=== PATIENT | female | born 1945 | race Caucasian/White ===

== ENCOUNTER → 2018-03-07 | Outpatient (CLI) | payer OTHER ==
[~2018-03-07] MED LIST: ANAS1TAB7 PO; HYDR25TA PO; IBUP-2077 PO; LISI40TA4 PO; MONT10TA24 PO
== END | disposition home or self-care (01) ==
LOC: RAH 11:03
PROVIDERS: ATTEND Family Medicine
DX: R92.8 Other abnormal and inconclusive findings on diagnostic imaging of breast (principal); Z90.11 Acquired absence of right breast and nipple; Z85.3 Personal history of malignant neoplasm of breast
CPT/HCPCS: 77065

== ENCOUNTER → 2019-03-09 | Outpatient (CLI) | payer OTHER | END | disposition home or self-care (01) | LOC: RAH 12:30 | PROVIDERS: ATTEND Internal Medicine Hematology & Oncology | DX: R92.1 Mammographic calcification found on diagnostic imaging of breast (principal); Z85.3 Personal history of malignant neoplasm of breast; Z90.11 Acquired absence of right breast and nipple | CPT/HCPCS: 77065 ==

== ENCOUNTER 2019-12-27 06:51 | Inpatient (IN) | payer OTHER ==
[2019-12-26 09:57] LABS: BASOPHILS % (AUTO) 0.4 % (0.0-5.0); EOSINOPHILS % (AUTO) 2.8 % (0.0-8.0); HEMATOCRIT 38.5 % (36-48); LYMPHOCYTES % (AUTO) 25.8 % (21.0-51.0); MEAN CORPUSCULAR HEMOGLOBIN 27.6 pg (27.0-33.0); MEAN CORPUSCULAR HGB CONC 30.6 g/dL (32.0-36.0); MEAN CORPUSCULAR VOLUME 90.2 fL (79-99); MONOCYTES % (AUTO) 7.8 % (3.0-13.0); NEUTROPHILS % (AUTO) 62.7 % (40.0-77.0); PLATELET COUNT (AUTO) 254 K/uL (130-400); RED BLOOD CELL COUNT(AUTO) 4.27 MIL/uL (4.00-5.50); WHITE BLOOD COUNT (AUTO) 7.8 K/uL (4.8-10.8)
[2019-12-26 10:00] VITALS: BP 214/90
[2019-12-26 10:22] LABS: CREATININE 1.1 mg/dL (0.5-1.5); POTASSIUM 4.3 mmol/L (3.5-5.1)
--- NOTE | 2019-12-26 10:47 | NUR ---
[place] PER DR. ROGERS
[~2019-12-27] VITALS: Ht 147.3 cm; Wt 125.2 kg
[2019-12-27] VITALS (26 sets, daily range): BP systolic 103–174; BP diastolic 48–95
[~2019-12-27 06:51] MED LIST changes: -MONT10TA24 PO; +MONT10TA26 PO
[2019-12-27] MEDS: LACTATED RINGERS 1000ML 1,000 ML IV ONE ×2 (07:33→08:12)
[2019-12-27] MEDS ORDERED: SODIUM CHLORIDE 0.9% 1000ML 1,000 ML IV SCH (08:00)
[2019-12-27] MEDS ORDERED: CEFAZOLIN SODIUM 1 GM VIAL IVP ONE (08:00)
[2019-12-27] MEDS ORDERED: DEXAMETHASONE SOD PHOSPHATE 10MG/ML 1ML VIAL ONE (08:20)
[2019-12-27] MEDS ORDERED: MIDAZOLAM HCL 1 MG/ML 2ML VIAL ONE (08:20)
[2019-12-27] MEDS ORDERED: LIDOCAINE PF 2% 5ML ABBOJECT ONE (08:20)
--- NOTE | 2019-12-27 08:20 | NUR ---
skin bilateral lower extremities with redness and swelling, right upper arm noted with dry blisters . pt has hx lymphedema. dr. herr and Anish Marsh crna made aware. orders received to use left arm for piv for now. Addendum: 12/27/19 at 0822 by OG WEN RN Amended: Links added.
[2019-12-27] MEDS ORDERED: ONDANSETRON HCL 4 MG/2 ML VIAL ONE (08:21)
[2019-12-27] MEDS ORDERED: ROCURONIUM 10MG/1ML SYR 10 MG/ML ML ONE ×2 (08:21→09:47)
[2019-12-27] MEDS ORDERED: PROPOFOL 10 MG/ML 20ML VIAL IV ONE (08:21)
[2019-12-27] MEDS ORDERED: FENTANYL CITRATE PF 50 MCG/1 ML 2ML VIAL ONE ×2 (08:21→09:50)
[2019-12-27] MEDS ORDERED: KETAMINE 50MG/ML SYRINGE 50 MG/ML DISP.SYRIN IV ONE (08:23)
[2019-12-27] MEDS ORDERED: ALBU90AE IH (08:23)
[2019-12-27] MEDS ORDERED: LORA-868 PO (08:24)
[2019-12-27] MEDS ORDERED: EPHEDRINE SULFATE 50 MG/ML AMPULE ONE (10:07)
[2019-12-27] MEDS ORDERED: BUPIVACAINE/PF 0.25% 30ML VIAL IJ ONE (11:07)
[2019-12-27] MEDS ORDERED: GLYCOPYRROLATE 1 MG/5 ML SYRINGE ONE (11:26)
[2019-12-27] MEDS ORDERED: NEOSTIGMINE 5MG/5ML SYR IV ONE (11:27)
[2019-12-27] MEDS ORDERED: ONDANSETRON HCL 4 MG/2 ML VIAL IVP PRN (12:45)
[2019-12-27] MEDS: ACETAMINOPHEN-CODEINE 300/30MG TAB PO PRN ×3 (14:33→22:56)
[2019-12-28] VITALS (11 sets, daily range): BP systolic 108–186; BP diastolic 56–99
[2019-12-28] MEDS: ACETAMINOPHEN-CODEINE 300/30MG TAB PO PRN ×2 (03:15→13:35)
[2019-12-28] MEDS ORDERED: HYDROCHLOROTHIAZIDE 25 MG TABLET PO SCH (09:23)
[2019-12-28] MEDS ORDERED: LISINOPRIL 40 MG TABLET PO SCH (09:24)
[2019-12-28] MEDS ORDERED: MUPIROCIN OINTMENT 22 GM TUBE TP SCH (12:30)
--- NOTE | 2019-12-28 14:43 | NUR ---
DC PLAN VISITED WITH PATIENT. PATIENT LIVES WITH SPOUSE. INDEPENDENT ABLE TO PERFORM ADL'S. PATIENT HAS NO SERVICES. PER PATIENT HAS 02 CONCENTRATOR AND PORTABLE FOR WHEN COPD FLARES. FEELS SAFE TO RETURN HOME. THE ORDER FOR DISCHARGE SAID HOME WITH HOME HEALTH SPOKE TO NURSE AND PATIENT. SAID PER MD IT HAD BEEN SET UP AT [facility]. BUT DID NOT KNOW WHICH COMPANY. MENTIONED [facility] SAID THAT SOUNDED RIGHT. I CALLED OFFICE OF DR. FREY PER ANSWERING SERVICES THEY ARE OUT TO LUNCH TILL 3PM. LEFT MESSAGE FOR THEM TO CALL ME BACK TO CONFIRM THEY HAD SET UP HOME HEALTH. CALLED [facility] TO SEE IF THEY RECEIVED A PACKET FROM THE OFFICE SAID NO THEY HAD NOT BUT IT COULD HAVE BEEN SENT TO [facility]. PATIENT TRANSFERRED TO 4TH FLOOR LET CM KNOW OF CURRENT SITUATION. Addendum: 12/28/19 at 1448 by GABBIE BURCIAGA RN CM Amended: Links added.
--- NOTE | 2019-12-28 15:23 | NUR ---
CM Note: [facility] reacceptance CM spoke to Marybeth pizarro/[facility], pt has reacceptance, verbalized pt is active with them under Dr Leslie already. Primary nurse aware. Safe to dc via private car. CM to cont to follow up.
--- NOTE | 2019-12-28 15:42 | NUR ---
DISCHARGE REPORT GIVEN TO NAS[facility]/MANAGER SHAREPOINT FOR TRANSFER OF SERVICES TO [facility]
== END 2019-12-28 16:40 | disposition home health service (06) | DRG 580 ==
LOC: DAH 06:51 → 2BH 06:52 → DAH 06:52 → 4DH 12-28 13:57
PROVIDERS: ADMIT Student in an Organized Health Care Education/Training Program; ATTEND Student in an Organized Health Care Education/Training Program
PROC: 07B60ZZ Excision of Left Axillary Lymphatic, Open Approach (ICD-10-PCS; 2019-12-27)
PROC: 0HTU0ZZ Resection of Left Breast, Open Approach (ICD-10-PCS; principal; 2019-12-27 09:47)
DX: C50.912 Malignant neoplasm of unspecified site of left female breast (principal); C79.9 Secondary malignant neoplasm of unspecified site; I89.0 Lymphedema, not elsewhere classified; I10 Essential (primary) hypertension; J44.9 Chronic obstructive pulmonary disease, unspecified; Z90.11 Acquired absence of right breast and nipple; Z88.8 Allergy status to other drugs, medicaments and biological substances; Z80.9 Family history of malignant neoplasm, unspecified; Z79.811 Long term (current) use of aromatase inhibitors
CPT/HCPCS: 36415; 71045; 80048; 85025; 88307; 88341; 88342; 93005; G0378; J0690; J1100; J2001; J2250; J2405; J2704; J2710; J3010; J3490; J7030; J7040; J7120

== ENCOUNTER → 2020-01-05 | Outpatient (CLI) | payer OTHER ==
[~2020-01-05] MED LIST changes: +ALBU90AE IH; -IBUP-2077 PO; +LORA-868 PO
== END | disposition home or self-care (01) ==
LOC: RAH 14:48
PROVIDERS: ATTEND Student in an Organized Health Care Education/Training Program
DX: R22.2 Localized swelling, mass and lump, trunk (principal); N63.32 Unspecified lump in axillary tail of the left breast
CPT/HCPCS: 76882

== ENCOUNTER 2020-01-17 11:02 | Emergency (ER) | payer OTHER ==
[2020-01-17] MEDS ORDERED: ONDANSETRON HCL 4 MG/2 ML VIAL ONE (11:52)
[2020-01-17] MEDS ORDERED: FENTANYL CITRATE PF 50 MCG/1 ML 2ML VIAL ONE (11:54)
[2020-01-17 12:13] LABS: BASOPHILS % (AUTO) 0.2 % (0.0-5.0); EOSINOPHILS % (AUTO) 1.3 % (0.0-8.0); LYMPHOCYTES % (AUTO) 14.4 % (21.0-51.0); MEAN CORPUSCULAR HEMOGLOBIN 28.4 pg (27.0-33.0); MEAN CORPUSCULAR HGB CONC 31.8 g/dL (32.0-36.0); MEAN CORPUSCULAR VOLUME 89.2 fL (79-99); MONOCYTES % (AUTO) 9.3 % (3.0-13.0); NEUTROPHILS % (AUTO) 74.5 % (40.0-77.0); PLATELET COUNT (AUTO) 260 K/uL (130-400); RED CELL DISTRIBUTION WIDTH 14.1 % (11.0-15.5); WHITE BLOOD COUNT (AUTO) 11.9 K/uL (4.8-10.8)
[2020-01-17 12:20] LABS: CREATININE 1.1 mg/dL (0.5-1.5); POTASSIUM 3.8 mmol/L (3.5-5.1)
[2020-01-17 12:24] LABS: ALBUMIN 2.7 g/dL (3.5-5.0); BILIRUBIN,DIRECT 0.1 mg/dL (0.0-0.3); BILIRUBIN,TOTAL 0.4 mg/dL (0.2-1.0); TOTAL PROTEIN, SERUM 7.2 g/dL (6.0-8.3)
[2020-01-17 12:26] LABS: INR 0.91 (0.85-1.15); PARTIAL THROMBOPLASTIN TIME 25.9 SEC (26.3-35.5); PROTHROMBIN TIME 9.9 SEC (9.6-11.6)
[2020-01-17 13:01] LABS: B-TYPE NATRIURETIC PEPTIDE 368 pg/mL (0-100)
[2020-01-17] MEDS ORDERED: MORPHINE SULFATE 4 MG/1ML SYG ONE (13:27)
--- NOTE | 2020-01-17 16:31 | NUR ---
CHANTELLE ASKED TO HELP WITH AMBULANCE AUTHORIZATION FROM ER TO HOME PT WITH COMPLAINTS OF LEG PAIN, MOBILITY DECREASED. RN X2 UNABLE TO GIVE BACKGROUND INFO RE; SOMEONE TO RECEIVE PATIENT. CALL TO [facility] [phone], NO ANSWER, CALL TO DANIEL, . GIVES HX PT HAS 2 + DAYS OF PAIN AND DECREAESD MOBILITY. 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 DAUGHTER CONCERNED- NUMBER GIVEN FOR GEORGINA , OF [facility], AND SPOKE TO BOTH GEORIGNA AND [facility] TO DETERMINE SAFE DISCHARGE PLAN BECKY STATES PATIENT WAS SEEN /CLEARED TO DRIVE BY SURGEON RECENTLY- CHANTELLE ASKED IF PATIENT HAS DRIVEN AND BECKY G/SON STATES SHE HAD. ADVISED G/SON THAT NO AMBULANCE WOULD BE AUTHORIZED FOR THIS TRIP HOME. [facility] AGREED TO COME STORE PLANNER PT BUT WANTS A MASK FOR PT AND SELF. CALL TO JAIME IN ER TO ADVISE OF SAME
== END 2020-01-17 17:05 | disposition home or self-care (01) ==
LOC: EDH 11:02
DX: L03.115 Cellulitis of right lower limb (principal); M79.604 Pain in right leg; I10 Essential (primary) hypertension; J44.9 Chronic obstructive pulmonary disease, unspecified; Z88.1 Allergy status to other antibiotic agents; Z88.8 Allergy status to other drugs, medicaments and biological substances
CPT/HCPCS: 36415; 71045; 80048; 80076; 82550; 83880; 84484; 85025; 85378; 85610; 85730; 87040 ×2; 87804 ×2; 93005; 93971; 96374; 96375; 99285; J2270; J2405; J3010

== ENCOUNTER 2020-02-02 19:22 | Emergency (ER) | payer OTHER ==
[2020-02-02 19:52] LABS: BASOPHILS % (AUTO) 0.3 % (0.0-5.0); EOSINOPHILS % (AUTO) 2.5 % (0.0-8.0); HEMATOCRIT 29.9 % (36-48); LYMPHOCYTES % (AUTO) 20.1 % (21.0-51.0); MEAN CORPUSCULAR HEMOGLOBIN 27.3 pg (27.0-33.0); MEAN CORPUSCULAR HGB CONC 31.4 g/dL (32.0-36.0); MEAN CORPUSCULAR VOLUME 86.9 fL (79-99); NEUTROPHILS % (AUTO) 68.5 % (40.0-77.0); PLATELET COUNT (AUTO) 433 K/uL (130-400); RED BLOOD CELL COUNT(AUTO) 3.44 MIL/uL (4.00-5.50); RED CELL DISTRIBUTION WIDTH 13.6 % (11.0-15.5); WHITE BLOOD COUNT (AUTO) 11.7 K/uL (4.8-10.8)
[2020-02-02 20:04] LABS: CREATININE 2.9 mg/dL (0.5-1.5); POTASSIUM 4.4 mmol/L (3.5-5.1)
[2020-02-02] MEDS ORDERED: FUROSEMIDE 10 MG/ML 4ML VIAL ONE (20:07)
[2020-02-02 20:15] LABS: BILIRUBIN,TOTAL 0.2 mg/dL (0.2-1.0)
[2020-02-02 20:16] LABS: ALBUMIN 2.2 g/dL (3.5-5.0); TOTAL PROTEIN, SERUM 6.9 g/dL (6.0-8.3)
[2020-02-02 20:44] LABS: B-TYPE NATRIURETIC PEPTIDE 114 pg/mL (0-100)
[2020-02-02] MEDS ORDERED: MORPHINE SULFATE 4 MG/1ML SYG ONE (21:19)
[2020-02-02] MEDS ORDERED: ONDANSETRON HCL 4 MG/2 ML VIAL ONE (21:19)
== END 2020-02-02 23:14 | disposition home or self-care (01) ==
LOC: EDH 19:22
DX: R53.1 Weakness (principal); R20.2 Paresthesia of skin; L03.116 Cellulitis of left lower limb; L03.115 Cellulitis of right lower limb; I10 Essential (primary) hypertension; J44.9 Chronic obstructive pulmonary disease, unspecified; Z88.1 Allergy status to other antibiotic agents; Z88.8 Allergy status to other drugs, medicaments and biological substances; Z90.710 Acquired absence of both cervix and uterus; Z85.3 Personal history of malignant neoplasm of breast
CPT/HCPCS: 36415; 70450; 71045; 80053; 82550; 83880; 84484; 85025; 93005; 96374; 99285; J1940; J2270; J2405